=== PATIENT | female | born 2000 | race Caucasian/White ===

== ENCOUNTER 2022-03-12 20:53 | Emergency (ER) | payer SELFPAY ==
[2022-03-12] MEDS ORDERED: Cephalexin 500 MG CAP ONE (21:41)
== END 2022-03-12 21:48 | disposition home or self-care (01) ==
LOC: MADERS 20:53
DX: O99.719 Diseases of the skin and subcutaneous tissue complicating pregnancy, unspecified trimester (principal); L03.113 Cellulitis of right upper limb; Z3A.00 Weeks of gestation of pregnancy not specified
CPT/HCPCS: 99283